=== PATIENT | male | born 1940 | race Caucasian/White ===

== ENCOUNTER 2019-11-07 07:51 | Day surgery (SDC) | payer MEDICARE ==
[~2019-11-07] VITALS: Ht 193 cm; Wt 93.5 kg
[~2019-11-07 07:51] MED LIST: METHOTREXA2.5 MG/TAB PO; PRILOSEC 20MG20 MG PO
[2019-11-07] MEDS ORDERED: FOLIC ACID800 MCG PO (08:19)
[2019-11-07] MEDS ORDERED: MELATONIN5 M1 PO (08:20)
[2019-11-07] MEDS ORDERED: VITAMIN D3400 I1 PO (08:20)
[2019-11-07 08:21] VITALS: BP 119/75; PULSE 56; TEMP 97.2
[2019-11-07 11:47] VITALS: TEMP 98.3
[2019-11-07 12:15] VITALS: BP 121/77; PULSE 58
--- NOTE | 2019-11-07 12:15 | NUR ---
Patient returns to room 7 per cart from PACU accompanied by Odalys ARROYO and is awake and alert. Temp 97.8 and room air sats 93%. Aguirre set dressing x3 on abdomen clean and dry. IV fluids infusing #18G RH and site is free of redness. Taking ice water and denies pain or nausea.
[2019-11-07 12:30] VITALS: BP 122/67; PULSE 57
--- NOTE | 2019-11-07 12:30 | NUR ---
Continues to sip on water and denies discomfort.
[2019-11-07 12:45] VITALS: BP 121/77; PULSE 53
--- NOTE | 2019-11-07 12:45 | NUR ---
Room air sats 94%. Sipping on grape juice.
--- NOTE | 2019-11-07 12:50 | NUR ---
Ambulatory to the bathroom and is able to void and returns to room. Gait steady and denies pain or nausea.
--- NOTE | 2019-11-07 13:10 | NUR ---
Eating ice cream and continues to deny pain or nausea.
[2019-11-07] MEDS ORDERED: ULTRAM 50MG TAB50 MG PO (13:19)
--- NOTE | 2019-11-07 13:25 | NUR ---
IV discontinued and patient dresses self. Continues to deny pain or nausea.
--- NOTE | 2019-11-07 13:33 | NUR ---
Dismissal instructions given and signed. Patient voices understanding of these and provided script for Ultram for pain. Instructed that he may take Tylenol for pain if needed. Instructed to apply ice to incisional areas every 4-6 hours for 10-15minutes. Patient dismissed to home driven by spouse and taken to the front door per wheelchair and assisted into car with dismissal instructions in hand.
== END 2019-11-07 13:33 | disposition home or self-care (01) ==
LOC: SDCO 07:51
DX: K40.90 Unilateral inguinal hernia, without obstruction or gangrene, not specified as recurrent (principal); K21.9 Gastro-esophageal reflux disease without esophagitis; M19.90 Unspecified osteoarthritis, unspecified site; Z87.891 Personal history of nicotine dependence; Z88.8 Allergy status to other drugs, medicaments and biological substances; Z85.828 Personal history of other malignant neoplasm of skin
CPT/HCPCS: J0330; J1100; J1885; J2405; J2704; J3010; J7120

== ENCOUNTER → 2022-02-14 | Outpatient (CLI) | payer MEDICARE ==
--- NOTE | 2022-02-09 14:44 | NUR ---
lmom with instructions and call back number.
[~2022-02-14] VITALS: Ht 193 cm; Wt 87.7 kg
[~2022-02-14] MED LIST changes: +FOLIC ACID800 MCG PO; +MELATONIN5 M1 PO; +MULTI VITAMINS1 TAB PO; +ULTRAM 50MG TAB50 MG PO; +VITAMIN D31000 IU PO; +VITAMIN D3400 I1 PO
[2022-02-14 12:09] VITALS: BP 139/77; PULSE 60; TEMP 97.6
--- NOTE | 2022-02-14 12:35 | NUR ---
Dr Michel in to examine pt. No lymph node found. Biopsy canceled.
== END ==
LOC: COL.RAD 11:41
DX: R59.0 Localized enlarged lymph nodes (principal)

== ENCOUNTER 2023-10-31 19:38 | Emergency (ER) | payer MEDICARE ==
[~2023-10-31] VITALS: Ht 193 cm; Wt 88.6 kg
[2023-10-31 19:46] VITALS: TEMP 98
[2023-10-31 20:27] VITALS: BP 132/90; PULSE 70
== END 2023-10-31 20:32 | disposition home or self-care (01) ==
LOC: COL.ER 19:38
DX: R00.0 Tachycardia, unspecified (principal)

== ENCOUNTER 2023-11-10 12:14 | Emergency (ER) | payer MEDICARE ==
[~2023-11-10] VITALS: Ht 193 cm; Wt 88.6 kg
[2023-11-10 12:45] LABS: BASO % 0.3 % (0.0-2.0); EOS % 0.2 % (0.0-4.0); GRAN # 7.4 K/mm3 (1.4-6.5); GRAN % 78.7 % (42.2-75.2); HEMATOCRIT 39.4 % (42.0-52.0); HEMOGLOBIN 13.8 g/dl (13.5-18.0); LYMPH # 1.1 K/mm3 (1.2-3.4); LYMPH % 11.9 % (20.0-51.0); MEAN CELL VOLUME 99 fl (80.0-100.0); MEAN CORPUSCULAR HEMOGLOBIN 35 pg (27-31); MEAN CORPUSCULAR HGB CONC 35 g/dl (33.0-37.0); MEAN PLATELET VOLUME 9.6 fl (7.4-10.4); MONO # 0.8 K/mm3 (0.1-0.6); MONO % 8.2 % (1.7-9.3); PLATELET COUNT 207 K/mm3 (130-400); RED BLOOD COUNT 3.98 M/mm3 (4.20-5.60); REDCELL DISTRIBUTION WIDTH-CV 13.4 % (11.5-14.5)
[2023-11-10 13:02] LABS: INR 1.1 (0.8-3.0); PROTHROMBIN TIME 11.9 SECONDS (9.7-12.8)
[2023-11-10 13:04] LABS: PARTIAL THROMBOPLASTIN TIME 34.1 SECONDS (26.0-37.0)
[2023-11-10 13:09] LABS: ALANINE AMINOTRANSFERASE 25 U/L (0-55); ALBUMIN 4.3 gm/dL (3.4-4.8); ALKALINE PHOSPHATASE 65 U/L (40-150); ANION GAP 8 mmol/L (7-16); AST,SGOT 24 U/L (5-34); BILIRUBIN,TOTAL 0.7 mg/dL (0.2-1.2); BLOOD UREA NITROGEN 19 mg/dL (8-26); CALCIUM 9.3 mg/dL (8.4-10.2); CARBON DIOXIDE 20 mmol/L (23-31); CHLORIDE 103 mmol/L (98-107); CREATINE KINASE 115 U/L (30-200); GLUCOSE 129 mg/dL (70-99); POTASSIUM 4.4 mmol/L (3.5-4.5); SODIUM 131 mmol/L (136-145); TOTAL PROTEIN 6.9 gm/dL (6.2-8.1)
[2023-11-10] MEDS ORDERED: Adenosine 6 MG/2 ML VIAL IV ONE (13:15)
[2023-11-10 13:50] LABS: TROPONIN-I < 0.010 ng/mL (0.00-0.033)
[2023-11-10] MEDS ORDERED: TOPROL XL 50MG50 MG PO (14:04)
[2023-11-10 15:57] VITALS: BP 147/78; PULSE 65
== END 2023-11-10 16:10 | disposition home or self-care (01) ==
LOC: COL.ER 12:14
PROVIDERS: Emergency Medicine
DX: I47.10 Supraventricular tachycardia, unspecified (principal)
CPT/HCPCS: J0153